=== PATIENT | male | born 1945 | race Caucasian/White ===

== ENCOUNTER → 2017-07-06 | Emergency (ER) | payer OTHER ==
[~2017-07-06] VITALS: Ht 160 cm; Wt 74.8 kg
[~2017-07-06] MED LIST: DICLOFENAC SODI50 MG PO; ENALAPRIL MALEA20 MG; METFORMIN HCL500 MG; NORFLEX100MG PO; SIMVASTATIN10 MG
== END | disposition left against medical advice (07) ==
LOC: ER 12:15
DX: N39.0 Urinary tract infection, site not specified (principal); B96.1 Klebsiella pneumoniae [K. pneumoniae] as the cause of diseases classified elsewhere